=== PATIENT | male | born 1970 | race Caucasian/White ===

== ENCOUNTER 2018-06-28 00:26 | Inpatient (IN) | payer SELFPAY ==
[2018-06-28 00:58] LABS: Hemoglobin 18.4 g/dL (14.0-18.0); Mean Corpuscular HGB CONC 33.2 g/dL (32.0-36.0); Mean Corpuscular Hemoglobin 32.8 pg (27.0-31.0); Mean Corpuscular Volume 98.8 fL (78.0-98.0); Mean Platelet Volume 8.2 fL (7.4-10.4); Platelet Count 325 thou/uL (130-400); RBC Distribution Width 12.2 % (11.5-14.5); White Blood Cell (WBC) Count 34.3 thou/uL (4.8-10.8)
[2018-06-28 01:18] LABS: ALT (SGPT) 66 U/L (8-55); AST (SGOT) 41 U/L (5-34); Albumin 4.7 g/dL (3.5-5.0); Alkaline Phosphatase 110 U/L (40-150); Anion Gap 19 mmol/L (10-20); BUN (Urea Nitrogen) 8 mg/dL (8.9-20.6); Bilirubin, Total 0.4 mg/dL (0.2-1.2); Calc. Creatinine Clearance 0 mL/min (70-130); Calcium 8.9 mg/dL (7.8-10.44); Carbon Dioxide 17 mmol/L (22-29); Chloride 106 mmol/L (98-107); Estimated GFR-MDRD 87; Globulin 3.2 g/dL (2.4-3.5); Glucose 109 mg/dL (70-105); Potassium 4.2 mmol/L (3.5-5.1); Protein, Total 7.9 g/dL (6.0-8.3); Sodium 138 mmol/L (136-145)
[2018-06-28 01:21] LABS: Band 5 % (5-11); Lymphocytes 9 % (21-51); MDiff Complete? YES; Monocytes 5 % (0-10); Neutrophil 81 % (42-75)
[2018-06-28 01:55] LABS: Acetaminophen Less than 6.0 mcg/mL (10.0-30.0); Alcohol 144 mg/dL (Less than 10); Salicylate Less than 8.0 mg/dL (15.0-30.0)
[2018-06-28] MEDS ORDERED: Adacel (T-DAP) 0.5 ML SYRINGE IM ONE (02:00)
[2018-06-28] MEDS ORDERED: Bacitracin Zinc Ointment 30 gm TUBE TOP SCH (02:00)
[2018-06-28] MEDS ORDERED: Fentanyl 100 MCG/2 ML VIAL SLOW IVP SCH (02:00)
[2018-06-28 02:07] LABS: Bilirubin Negative (Negative); Blood, Urine Negative (Negative); Clarity CLEAR (Clear); Glucose, Urine (Dipstick) Negative (Negative); Leukocyte Negative (Negative); Nitrite Negative (Negative); Protein, Urine (Dipstick) Negative (Neg-Trace); Specific Gravity, Urine 1.043 (1.002-1.036); Urobilinogen 0.2 mg/dL (0.2-1.0)
[2018-06-28 02:22] LABS: Medtox Reader # READER 4; THC/Cannabinoid Screen Detected (NotDetected)
[2018-06-28 02:23] LABS: Amphetamine Not Detected (NotDetected); Barbiturates Screen Not Detected (NotDetected); Benzodiazepine Screen Not Detected (NotDetected); Cocaine Metabolite Screen Not Detected (NotDetected); Medtox Control Line Valid? VALID (VALID); Methadone Not Detected (NotDetected); Methamphetamine Not Detected (NotDetected); Opiate Screen Not Detected (NotDetected); Oxycodone Screen Not Detected (NotDetected); Phencyclidine (PCP) Not Detected (NotDetected); Tricyclic Screen Not Detected (NotDetected)
[2018-06-28 02:32] LABS: Prothrombin Time 12.8 SEC (12.0-14.7)
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
[2018-06-28] MEDS ORDERED: Dextrose 50% Abboject 50 ML SYRINGE SLOW IVP PRN (04:14)
[2018-06-28] MEDS ORDERED: traMADol HCl 50 MG TAB PO PRN (04:14)
[2018-06-28] MEDS ORDERED: Dextrose 5% in Water 1,000 ML IV PRN (04:14)
[2018-06-28] MEDS ORDERED: Cyclobenzaprine 10 MG TAB PO PRN (04:14)
[2018-06-28] MEDS ORDERED: Ondansetron PF 4 MG/2 ML Vial IVP PRN (04:14)
[2018-06-28] MEDS ORDERED: Promethazine HCl 25 MG/ML VIAL IM PRN (04:14)
[2018-06-28] MEDS: Morphine 2 MG/ML SYRINGE SLOW IVP PRN ×4 (04:31→13:05)
[2018-06-28] MEDS: Acetaminophen 1,000 MG in Premix Bag 1 BAG IVPB SCH ×3 (04:36→17:33)
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
[2018-06-28 04:48] VITALS: BMI 34.0
[2018-06-28] MEDS: traMADol HCl 50 MG TAB PO PRN ×2 (05:16→17:08)
[2018-06-28] MEDS: Sodium Chloride 0.9% 1,000 ML IV SCH ×2 (05:25→13:06)
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
[2018-06-28] MEDS ORDERED: Morphine 2 MG/ML SYRINGE SLOW IVP SCH (08:30)
[2018-06-28] MEDS ORDERED: Senokot S 8.6-50 MG TAB PO SCH (09:00)
[2018-06-28] MEDS ORDERED: Famotidine/PF 20 mg/2ml Vial SLOW IVP SCH (09:00)
[2018-06-28] MEDS ORDERED: Polyethylene Glycol 3350 17 GM Packet PO SCH (09:00)
[2018-06-28] MEDS: hydrALAZINE 20 MG/ML VIAL SLOW IVP PRN ×2 (09:27→17:09)
[2018-06-28] MEDS: Gabapentin 100 MG CAP PO SCH ×2 (09:28→15:34)
[2018-06-28 09:29] VITALS: BP 164/90
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
[2018-06-28] MEDS ORDERED: ISOVUE-370 76%-LOCM 1 ML ONE (10:49)
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
[2018-06-28 16:25] VITALS: TEMP 97.9
--- NOTE | 2018-06-28 23:30 | PDOC.GSPN ---
Surgery Progress Note: Subj - Subjective Narrative: Patient was seen him personally examined in the ER at the time of his admission and again this morning on rounds with the trauma PA. I agree with the history and plan as documented in her notes. Surgery Progress Note: Obj - Vital signs Vital signs: Vital Signs - Most Recent Temp Pulse Resp BP Pulse Ox 97.9 F 88 164/90 H 97 06/28/18 16:00 06/28/18 17:09 06/28/18 17:09 06/28/18 08:00 Surgery Progress Note: Results - Labs Result Diagrams: 06/28/18 00:46 06/28/18 00:46
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
== END 2018-06-28 17:48 | disposition home or self-care (01) | DRG 84 ==
LOC: ERS 00:26 → CCU 02:52
PROVIDERS: ADMIT Surgery; ATTEND Surgery
DX: S06.6X9A Traumatic subarachnoid hemorrhage with loss of consciousness of unspecified duration, initial encounter (principal); R40.2412 Glasgow coma scale score 13-15, at arrival to emergency department; F31.9 Bipolar disorder, unspecified; M54.2 Cervicalgia; M79.641 Pain in right hand; F10.129 Alcohol abuse with intoxication, unspecified; F15.929 Other stimulant use, unspecified with intoxication, unspecified; F41.8 Other specified anxiety disorders; Y90.6 Blood alcohol level of 120-199 mg/100 ml; F17.200 Nicotine dependence, unspecified, uncomplicated; V29.9XXA Motorcycle rider (driver) (passenger) injured in unspecified traffic accident, initial encounter; Y92.410 Unspecified street and highway as the place of occurrence of the external cause
CPT/HCPCS: 36415; 70450; 71045; 71260; 72125; 72170; 74177; 80053; 80306; 80307; 81003; 85025; 85610; 86850; 86900; 86901; 90471; 90715; 93005; 94760; 96361; 96374; 99292; G0390; J0131; J0360; J2270; J2405; J3010; Q9966; S0028